=== PATIENT | male | born 1980 | race Caucasian/White ===

== ENCOUNTER 2017-12-19 15:07 | Emergency (ER) | payer BC, OTHER ==
[2017-12-19] MEDS ORDERED: NS 1,000 ML IV ONE (15:14)
--- NOTE | 2017-12-19 15:19 | EDPHY ---
H & P Time Seen by Provider: 12/19/17 15:14 HPI/ROS: HPI: This is a 37-year-old male who presents Chief Complaint: Syncope after smoking marijuana Location: brain Quality: Syncope and collapse Duration: 1 hr prior to arrival Signs and Symptoms: no shortness of breath at rest, no shortness of breath on exertion, no cough, no chest pain, no palpitations, no lower extremity edema, no wheezing, no orthopnea, no paroxysmal nocturnal dyspnea, no fever, no injury/ trauma, no hemoptysis, no carpal pedal spasms Timing: Acute, resolving Severity: Moderate Context: Patient reports that he had a lower back strain after picking up his child several days ago and has been complaining of some lower back pain. He [employer] for lunch. Due to the pain in his lower back, he went home to home to smoke marijuana just like he did yesterday. Patient reports that after smoking marijuana he started to feel like he was in a tunnel, his was present and looked on a to him and her speech pattern was difficult to understand. He then started to feel dizzy and lightheaded and then "blackness fell." Patient denies hitting his head, neck injury, nausea, vomiting. Next thing he remembers his standing over him calling his name. His reports that he had LOC of less than 1 min. No seizure activity. Denies any fever, chest pain, shortness of breath. He has noted that his heart rate has been running in the low 100s for the last several weeks. He has an appoint with his primary care provider next week. Reports that he has not been drinking much water since he moved 2 months ago from [place], [place]. Modifying Factors: None Comment: ROS: see HPI Constitutional: No fever, no chills, no weight loss Eyes: No blurred vision Respiratory: No shortness of breath, no cough Cardiovascular: No chest pain, no palpitations, no lower extremity edema Gastrointestinal: No nausea, no vomiting, no diarrhea Genitourinary: No dysuria Extremities: No myalgias Neurologic: No weakness, no numbness Skin: No rashes Hematologic: No bruising, no bleeding MEDICAL/SURGICAL/SOCIAL HISTORY: Medical/surgical history: Brain tumor resected last year, tachycardia, parotid tumor resection, anxiety, depression Social history: with children. Recently moved from [facility] to [facility]. CONSTITUTIONAL: Extremely polite and cooperative middle-aged well-appearing white male, awake and alert, no obvious distress HEENT: Atraumatic and normocephalic, PERRL, EOMI. Nares patent; no rhinorrhea; no nasal mucosal edema. Tympanic membranes clear. Oropharynx clear, no exudate and moist pink mucosa. Airway patent. No lymphadenopathy. No meningismus. Cardiovascular: Normal S1/S2, regular rate, regular rhythm, without murmur rub or gallop. PULMONARY/CHEST: Symmetrical and nontender. Clear to auscultation bilaterally. Good air movement. No accessory muscle usage. ABDOMEN: Soft, nondistended, nontender, no rebound, no guarding, no peritoneal signs, no masses or organomegaly. No CVAT. EXTREMITIES: 2/2 pulses, strength 5/5, left Ankle: Plantar flexion to 50, dorsiflexion to 20. Foot inversion to 35 degree. No tenderness/swelling Anterior talofibular ligament. No tenderness/swelling Calcaneofibular ligament , no tenderness/swelling posterior talofibular ligament, no tenderness/swelling posterior inferior tibiofibular ligament. Achilles tendon intact. no deformities , no clubbing, no cyanosis or edema. NEUROLOGICAL: no focal neuro deficits. GCS 15. SKIN: Warm and dry, no erythema. no rash. Good capillary refill. Source: Patient, RN/MD Exam Limitations: No limitations Constitutional: Initial Vital Signs Temperature (C) 37.3 C 12/19/17 15:07 Heart Rate 85 12/19/17 15:07 Respiratory Rate 16 12/19/17 15:07 Blood Pressure 110/65 12/19/17 15:07 O2 Sat (%) 96 12/19/17 15:07 O2 Delivery Mode Room Air Allergies/Adverse Reactions: No Known Allergies Allergy (Unverified 12/19/17 15:15) Home Medications: Medication Instructions Recorded Cyclobenzaprine [Flexeril 10 MG 10 mg PO TID PRN #15 tab 12/19/17 (*)] Lexapro 12/19/17 Methylphenidate 12/19/17 Medical Decision Making - Diagnostics EKG Interpretation: 12 lead EKG: Indication: Syncope Rhythm: Normal sinus rhythm, rate 71 beats per minute [place]: Borderline left Intervals: Normal QRS: Normal ST segments: Normal T segment: Flipped in lead 3, AVR INTERPRETATION: No acute ischemic changes The 12 lead EKG was interpreted by myself and with attending. Imaging Results: Imaging Impressions Ankle X-Ray 12/19/17 15:24 Impression: Negative for fracture. ED Course/Re-evaluation: Vital signs stable upon arrival and patient placed on equipment monitor phototypesetting. Head CT scan due to history of tumor and resection, EKG, labs, IV fluids ordered 1525: Notified by nurse that patient now complaining of left ankle discomfort on the lateral aspect. He reports that he must have twisted it when he fell. Left ankle x-ray ordered. 1530: EKG shows no signs of acute ischemic changes, no arrhythmia 1622: Labs reviewed. WBC 11.4 with no left shift, creatinine 1.2. No electrolyte imbalance/acute coronary syndrome/thyroid disease/ACS Called by radiologist who advised that temporal bone shows mastoid resection and postsurgical changes but no acute intracranial changes there is no blood or fluid level next to the cerebellum. 1645: Reassessed patient who reports that he feels improved. Politely declines any imaging of his lower back but does ask for muscle relaxer to use as needed. No signs of neurovascular compromise/tenting of skin/compartment syndrome/ extremities and joints examined above and below area of concern and are neurovascularly intact/cauda equina syndrome. This patient was seen under the supervision of my secondary supervising physician. I evaluated care for this patient independently. Discussed this patient with Dr. Willett who did not see the patient. Differential Diagnosis: Syncope including but not limited to vasovagal syncope, arrhythmia, dehydration , and blood loss. - Data Points Laboratory Results: Laboratory Results 12/19/17 15:10 12/19/17 15:10 12/19/17 12/19/17 12/19/17 15:17 15:10 15:10 WBC 11.41 10^3/uL H 10^3/uL (3.80-9.50) RBC 5.43 10^6/uL 10^6/uL (4.40-6.38) Hgb 15.9 g/dL g/dL (13.7-17.5) Hct 46.8 % % (40.0-51.0) MCV 86.2 fL fL (81.5-99.8) MCH 29.3 pg pg (27.9-34.1) MCHC 34.0 g/dL g/dL (32.4-36.7) RDW 13.0 % % (11.5-15.2) Plt Count 297 10^3/uL 10^3/uL (150-400) MPV 12.2 fL H fL (8.7-11.7) Neut % (Auto) 44.1 % % (39.3-74.2) Lymph % (Auto) 45.7 % H % (15.0-45.0) [place] % (Auto) 7.3 % % (4.5-13.0) Eos % (Auto) 1.7 % % (0.6-7.6) Baso % (Auto) 0.9 % % (0.3-1.7) Nucleat RBC Rel Count 0.0 % % (0.0-0.2) Absolute Neuts (auto) 5.04 10^3/uL 10^3/uL (1.70-6.50) Absolute Lymphs (auto) 5.22 10^3/uL H 10^3/uL (1.00-3.00) Absolute Monos (auto) 0.83 10^3/uL H 10^3/uL (0.30-0.80) Absolute Eos (auto) 0.19 10^3/uL 10^3/uL (0.03-0.40) Absolute Basos (auto) 0.10 10^3/uL 10^3/uL (0.02-0.10) Absolute Nucleated RBC 0.00 10^3/uL 10^3/uL (0-0.01) Immature Gran % 0.3 % % (0.0-1.1) Immature Gran # 0.03 10^3/uL 10^3/uL (0.00-0.10) Platelet Estimate Not Reported Sodium 143 mEq/L mEq/L (135-145) Potassium 3.8 mEq/L mEq/L (3.3-5.0) Chloride 103 mEq/L mEq/L (97-110) Carbon Dioxide 23 mEq/l mEq/l (22-31) Anion Gap 17 mEq/L H mEq/L (8-16) BUN 18 mg/dL mg/dL (7-23) Creatinine 1.2 mg/dL mg/dL (0.7-1.3) Estimated GFR > 60 Glucose 99 mg/dL mg/dL (70-100) Calcium 9.9 mg/dL mg/dL (8.5-10.4) POC Troponin I 0.00 ng/mL ng/mL (0.00-0.08) TSH 3.660 uIU/mL uIU/mL (0.465-4.680) Medications Given: Discontinued Medications Sodium Chloride (Ns) 1,000 mls @ 0 mls/hr IV ONCE ONE; Wide Open PRN Reason: Protocol Stop: 12/19/17 15:15 Last Admin: 12/19/17 15:21 Dose: 1,000 mls Point of Care Test Results: Chemistry 12/19/17 15:17 POC Troponin I 0.00 ng/mL ng/mL (0.00-0.08) Departure - Departure Disposition: Home, Routine, Self-Care Clinical Impression: Vasovagal episode Left ankle sprain Qualifiers: Encounter type: initial encounter Involved ligament of ankle: unspecified ligament Qualified Code(s): S93.402A - Sprain of unspecified ligament of left ankle, initial encounter Low back strain Qualifiers: Encounter type: initial encounter Qualified Code(s): S39.012A - Strain of muscle, fascia and tendon of lower back, initial encounter Condition: Good Instructions: Syncope (ED) Additional Instructions: Please avoid any alcohol or drug use until all symptoms have resolved. Rest as much as possible until you are feeling better. Consume a minimum of 8-10 glasses of water or electrolyte fluid replacement drinks that include Gatorade, Powerade, Pedialyte. Follow-up with primary care provider in the next week. Follow-Up: Please follow-up as noted above. Follow-up sooner if your condition worsens or if you develop any new problems. Call as soon as possible for an appointment. Be clear when you call for an appointment that this is an Emergency Department follow-up. Contact the Emergency Department if you have trouble arranging follow-up care. Our referrals are not based on your insurance network. When time allows, contact your insurance carrier to verify the referral physician is in your plan. If not, get a referral for an in-network program manager. Referrals: PCP Not In,Dictionary [Medical Doctor] - 2-3 days, call for appt. Prescriptions: Cyclobenzaprine [Flexeril 10 MG (*)] 10 mg PO TID PRN #15 tab PRN Reason: Spasms
--- NOTE | 2017-12-19 15:20 | CPEKG ---
Heart Rate: 71 RR Interval: 845 P-R Interval: 176 QRSD Interval: 106 QT Interval: 412 QTC Interval: 448 P [place]: 48 QRS [place]: -28 T Wave [place]: 9 EKG Severity - BORDERLINE ECG - EKG Impression: SINUS RHYTHM EKG Impression: CONSIDER INFERIOR INFARCT Electronically Signed By: Leroy Nino 20-Dec-2017 07:36:42
[2017-12-19 15:43] LABS: PLATELET COUNT 297 10^3/uL (150-400)
[2017-12-19 17:18] VITALS: BP 114/65
== END 2017-12-19 17:18 | disposition home or self-care (01) ==
DX: R55 Syncope and collapse (principal); S93.402A Sprain of unspecified ligament of left ankle, initial encounter; S39.012A Strain of muscle, fascia and tendon of lower back, initial encounter; E86.9 Volume depletion, unspecified; X50.9XXA Other and unspecified overexertion or strenuous movements or postures, initial encounter; Y92.009 Unspecified place in unspecified non-institutional (private) residence as the place of occurrence of the external cause; Y99.8 Other external cause status; Y93.89 Activity, other specified
CPT/HCPCS: 84484-PO

== ENCOUNTER → 2018-03-20 | Outpatient (CLI) | payer BC | LOC: BMCIMAGING 11:59 | PROVIDERS: ATTEND Family Medicine | DX: M25.561 Pain in right knee (principal) ==

== ENCOUNTER → 2018-05-20 | Outpatient (CLI) | payer BC | LOC: SBRMNEURO 20:00 | PROVIDERS: ATTEND Psychiatry & Neurology Sleep Medicine | DX: G47.50 Parasomnia, unspecified (principal) ==

== ENCOUNTER 2018-06-09 08:17 | Emergency (ER) | payer BC ==
[2018-06-09 08:26] VITALS: BP 127/85
[2018-06-09] MEDS ORDERED: predniSONE 20 MG TAB PO ONE (08:44)
--- NOTE | 2018-06-09 08:44 | EDPHY ---
H & P Stated Complaint: Decreased hearing L ear since this am, pressure, "fullness" Time Seen by Provider: 06/09/18 08:28 HPI/ROS: CHIEF COMPLAINT: Hearing loss HISTORY OF PRESENT ILLNESS: Patient presents to the ED with a 1 day history of decreased hearing from his left ear. The patient has a prior history of a right acoustic neuroma and has had complete resection of his inner ear mechanism on that side. The patient is entirely reliant upon his left ear for hearing. The patient denies any history of fall or trauma. The patient denies any recent upper respiratory infection. The patient describes a muffled sound in his left ear. REVIEW OF SYSTEMS: A comprehensive 10 point review of systems is otherwise negative aside from elements mentioned in the history of present illness. 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, anxiety, R aucoustic neuroma removed - Social History Smoking Status: Never smoked - Physical Exam Exam: General Appearance: Alert, no distress Eyes: Pupils equal and round no pallor or injection ENT, Mouth: Mucous membranes moist, left tympanic membrane without erythema, mild effusion Respiratory: There are no retractions, lungs are clear to auscultation Cardiovascular: Regular rate and rhythm Gastrointestinal: Abdomen is soft and nontender, no masses, bowel sounds normal Neurological: 5/5 strength all 4 extremities Constitutional: Initial Vital Signs Temperature (C) 37.4 C 06/09/18 08:24 Heart Rate 75 06/09/18 08:24 Respiratory Rate 16 06/09/18 08:24 Blood Pressure 127/85 H 06/09/18 08:24 O2 Sat (%) 97 06/09/18 08:24 Allergies/Adverse Reactions: No Known Allergies Allergy (Verified 06/09/18 08:23) Home Medications: Medication Instructions Recorded Pilar 02/23/18 predniSONE [prednisone 20mg (RX)] 3 tab PO DAILY #21 tab 06/09/18 Medical Decision Making ED Course/Re-evaluation: Patient will be started on 60 mg of prednisone for his hearing loss. I spoke with Dr. Lomeli from ENT who has seen the patient in consultation in the past. He will contact the patient today to schedule a follow-up visit. Patient will be discharged home with a 7 day course of prednisone. - Data Points Medications Given: Discontinued Medications Prednisone (Prednisone) 60 mg PO EDNOW ONE Stop: 06/09/18 08:45 Last Admin: 06/09/18 08:47 Dose: 60 mg Departure - Departure Disposition: Home, Routine, Self-Care Clinical Impression: Hearing loss Condition: Good Instructions: Hearing Loss (ED) Additional Instructions: 1. Please take prednisone as directed. 2. Please schedule a follow-up appointment Referrals: Sean Lomeli MD [Medical Doctor] - As per Instructions
== END 2018-06-09 08:56 | disposition home or self-care (01) ==
DX: H91.92 Unspecified hearing loss, left ear (principal); Z86.018 Personal history of other benign neoplasm
CPT/HCPCS: J7512

== ENCOUNTER 2018-11-03 06:13 | Emergency (ER) | payer BC ==
[2018-11-03] MEDS ORDERED: DEXAMETHASONE 4 MG TAB PO ONE (07:29)
[2018-11-03] MEDS ORDERED: HYDROCODONE/APAP 5/325 TAB PO ONE (07:45)
--- NOTE | 2018-11-03 07:45 | EDPHY ---
H & P Stated Complaint: Sore throat post intubation, surg Thursday, increasing pain to jaw/eyes Time Seen by Provider: 11/03/18 07:13 HPI/ROS: CHIEF COMPLAINT: Sore throat HISTORY OF PRESENT ILLNESS: 38-year-old male 5 days s/p right ear surgery presents with left sided throat pain. Gradually increasing left sided throat pain since surgery, especially in the past 48 hr. The pain is moderate and increases with swallowing. The pain extends to the left side of the jaw and into the left ear. Last dose of hydrocodone was yesterday evening. 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, anxiety, R aucoustic neuroma removed - Social History Smoking Status: Never smoked Alcohol Use: Sober Drug Use: None - Physical Exam Exam: General Appearance: Alert, pleasant Head: surgical site clean, dry, intact right temporal area Eyes: Pupils equal and round, no conjunctival pallor or injection ENT, Mouth: Ulceration at the tip of the uvula, associated with uvula swelling , no dental tenderness or gingival swelling Neck: Normal inspection, no adenopathy Respiratory: Lungs are clear to auscultation Cardiovascular: Regular rate and rhythm Neurological: A&O, nonfocal, normal gait Skin: Warm and dry Psychiatric: Mood and affect normal Constitutional: Initial Vital Signs Temperature (C) 36.7 C 11/03/18 06:19 Heart Rate 59 L 11/03/18 06:19 Respiratory Rate 16 11/03/18 06:19 Blood Pressure 129/82 H 11/03/18 06:19 O2 Sat (%) 98 11/03/18 06:19 O2 Delivery Mode Room Air Allergies/Adverse Reactions: nickel Allergy (Verified 11/03/18 06:19) Home Medications: Medication Instructions Recorded Concerta 02/23/18 predniSONE [prednisone 20mg (RX)] 3 tab PO DAILY #21 tab 06/09/18 Hydrocodone/APAP 5/325 [[place] 1 - 2 tab PO Q4H PRN #10 tab 11/03/18 5/325] Keflex 11/03/18 Lidocaine 2% Viscous 5 ml PO TID PRN #100 ml 11/03/18 Oxycodone HCl 11/03/18 Medical Decision Making ED Course/Re-evaluation: This patient presents with ulceration of the uvula after recent surgery. Decadron 10 mg orally given. He was given a prescription for viscous lidocaine to use prior to meals. I also wrote a prescription for hydrocodone, as he ran out of his prescription of hydrocodone. I attempted to contact Dr. Lomeli, though he is not technology consultant, so I was unable to reach him. Pt will call office this morning to arrange prompt followup. - Data Points Medications Given: Discontinued Medications Hydrocodone Bitart/Acetaminophen ([place] 5/325) 1 tab PO EDNOW ONE Stop: 11/03/18 07:46 Last Admin: 11/03/18 07:48 Dose: 1 tab Dexamethasone (Decadron) 10 mg PO EDNOW ONE Stop: 11/03/18 07:30 Last Admin: 11/03/18 07:48 Dose: 10 mg Departure - Departure Disposition: Home, Routine, Self-Care Clinical Impression: Oral ulceration Condition: Good Instructions: Uvulitis (ED) Additional Instructions: You received a dose of Decadron in the ED this morning. Use the lidocaine prior to meals as needed. Referrals: Filomena Patino MD [Primary Care Provider] - As per Instructions Sean Lomeli MD [Medical Doctor] - As per Instructions Prescriptions: Hydrocodone/APAP 5/325 [[place] 5/325] 1 - 2 tab PO Q4H PRN #10 tab PRN Reason: Pain, Moderate Lidocaine 2% Viscous 5 ml PO TID PRN #100 ml PRN Reason: throat pain
[2018-11-03 07:59] VITALS: BP 121/84
== END 2018-11-03 07:57 | disposition home or self-care (01) ==
DX: K12.1 Other forms of stomatitis (principal)